=== PATIENT | female | born 1965 | race Caucasian/White ===

== ENCOUNTER → 2024-08-23 08:04 | Outpatient (REF) | payer OTHER, SELFPAY | LOC: HWWDC 08:04 | PROVIDERS: ATTENDING PHYSICIAN Nurse Practitioner Family; REFERRING PHYSICIAN Obstetrics & Gynecology | DX: Z12.31 Encounter for screening mammogram for malignant neoplasm of breast (principal) | CPT/HCPCS: 77063; 77067 ==

== ENCOUNTER → 2024-11-29 08:20 | Outpatient (REF) | payer OTHER, SELFPAY | LOC: RCS 08:20 | PROVIDERS: ATTENDING PHYSICIAN Family Medicine | DX: R00.2 Palpitations (principal); R06.09 Other forms of dyspnea; R42 Dizziness and giddiness | CPT/HCPCS: 93225; 93226 ==

== ENCOUNTER → 2024-12-05 13:54 | Outpatient (REF) | payer OTHER, SELFPAY | LOC: RAD 13:54 | PROVIDERS: ATTENDING PHYSICIAN Family Medicine | DX: Z86.79 Personal history of other diseases of the circulatory system (principal); Z98.62 Peripheral vascular angioplasty status; R00.2 Palpitations; R06.09 Other forms of dyspnea; R42 Dizziness and giddiness | CPT/HCPCS: 93306; 93975 ==

== ENCOUNTER → 2025-02-09 14:16 | Outpatient (REF) | payer OTHER, SELFPAY | LOC: RAD 14:16 | PROVIDERS: ATTENDING PHYSICIAN Internal Medicine Cardiovascular Disease; FAMILY PHYSICIAN Family Medicine | DX: I77.3 Arterial fibromuscular dysplasia (principal) | CPT/HCPCS: 70496; 70498; Q9967 ==

== ENCOUNTER → 2025-02-12 16:48 | Outpatient (REF) | payer OTHER, SELFPAY | LOC: RAD 16:48 | PROVIDERS: ATTENDING PHYSICIAN Internal Medicine Cardiovascular Disease; FAMILY PHYSICIAN Family Medicine | DX: I77.3 Arterial fibromuscular dysplasia (principal) | CPT/HCPCS: 71260; 74178; Q9967 ==

== ENCOUNTER → 2025-02-19 15:01 | Outpatient (REF) | payer OTHER, SELFPAY | LOC: RCS 15:01 | PROVIDERS: ATTENDING PHYSICIAN Internal Medicine Cardiovascular Disease; FAMILY PHYSICIAN Family Medicine | DX: R06.09 Other forms of dyspnea (principal); I45.10 Unspecified right bundle-branch block | CPT/HCPCS: 93017 ==